=== PATIENT | female | born 1965 | race Caucasian/White ===

== ENCOUNTER → 2017-10-15 | Outpatient (CLI) | payer OTHER | END | disposition home or self-care (01) | LOC: LAB.O 13:42 | PROVIDERS: ATTEND Nurse Practitioner Family | DX: I10 Essential (primary) hypertension (principal) ==

== ENCOUNTER 2017-12-19 17:30 | Emergency (ER) | payer SELFPAY ==
[2017-12-19] MEDS: diazePAM 2 MG TAB PO ONE (18:04)
[2017-12-19] MEDS: cloNIDine HCL 0.1 MG TAB PO ONE (18:04)
--- NOTE | 2017-12-19 18:21 | RAD ---
EXAM DESCRIPTION: Chest,2 Views CLINICAL HISTORY:52 years Female, left shoulder pain for 3 days, htn Comparison: None FINDINGS: No focal lung consolidation. No pleural effusion. No pneumothorax. Prominent cardiac silhouette. No acute osseous abnormality. Soft tissues are unremarkable. IMPRESSION: No focal lung consolidation. Prominent cardiac silhouette. Electronically signed by: Robe Franco MD 12/19/2017 6:19 PM CDT
[2017-12-19] MEDS ORDERED: ALUM & MAG HYDROX-SIMETHICONE 30 ML UD ONE (18:55)
[2017-12-19] MEDS ORDERED: LIDOCAINE HCL 2% (MOUTH-THROAT) 15 ML UD ONE (18:55)
[2017-12-19] MEDS: NITROGLYCERIN 0.4 MG 25 EA TAB SL ONE (18:58)
[2017-12-19] MEDS: ALUM & MAG HYDROX-SIMETHICONE 30 ML, LIDOCAINE VISCOUS 2% 15 ML PO ONE ×2 (18:58)
[2017-12-19] MEDS ORDERED: NITROGLYCERIN/D5W IV 250 ML IVS ONE (19:25)
[2017-12-19] MEDS: NITROGLYCERIN/D5W IV 50,000 MCG in PREMIX BOTTLE 1 BOTTLE IVS SCH (19:33)
[2017-12-19] MEDS: ASPIRIN TABLET 325 MG TAB PO ONE (19:33)
--- NOTE | 2017-12-19 19:41 | ED.PDOC ---
History of Present Illness - General Chief Complaint: General Stated Complaint: Left neck,clavicle,upper arm discomfort Time Seen by Provider: 12/19/17 17:47 Source: patient Exam Limitations: no limitations - History of Present Illness Initial Comments: the patient is a 52-year-old female presenting to the emergency room after 2 weeks of progressive pain in her left shoulder with some pain to the upper back as well. It is a little worse with movement. No worse with taking a deep breath. The patient does have some known hypertension. She was also diagnosed with some renal insufficiency a couple of months ago with a creatinine of 2.2 at that time. At that time it was apparently felt that this was due to the diuretics and the diuretic was discontinued and she was continued on her lisinopril. The patient has no coronary history. She has no history of any pulmonary emboli or deep venous thrombosis or any aortic pathology. Her only medications that she takes at home are lisinopril and a baby aspirin she has not passed out. She does not feel short of breath. She has no actual chest pain.she rates the pain in her shoulder upon arrival as a 10 out of 10 Timing/Duration: unsure Severity: severe Improving Factors: nothing Worsening Factors: movement Associated Symptoms: denies symptoms Allergies/Adverse Reactions: Allergies Codeine Allergy (Verified 12/19/17 17:44) Vomitting Home Medications: Ambulatory Orders Aspirin [[facility] Low Dose Aspiri] 81 mg PO BEDTIME 12/19/17 Lisinopril 20 mg PO DAILY 12/19/17 Review of Systems - Review of Systems Constitutional: States: no symptoms reported EENTM: States: no symptoms reported Respiratory: States: no symptoms reported Cardiology: States: no symptoms reported Gastrointestinal/Abdominal: States: no symptoms reported Genitourinary: States: no symptoms reported Musculoskeletal: States: see HPI Skin: States: no symptoms reported Neurological: States: no symptoms reported Endocrine: States: no symptoms reported All other Systems: No Change from Baseline Past Medical History (General) - Patient Medical History Hx Stroke: No Hx Congestive Heart Failure: No Hx Hypertension: Yes Hx Diabetes: No Hx MRSA: No Surgical History: no surgical history - Vaccination History Hx Influenza Vaccination: No Hx Pneumococcal Vaccination: No - Social History Hx Tobacco Use: No - Female History Patient is a Female of Child Bearing Age (10 -59 yrs old): No Patient : No Family Medical History - Family History Mother Living Status: Still Living Hx Family Hypertension: Yes Physical Exam - Physical Exam General Appearance: Alert, Anxious Eye Exam: bilateral normal Ears, Nose, Throat: hearing grossly normal, normal ENT inspection, normal pharynx Neck: full range of motion, supple Respiratory: lungs clear, normal breath sounds, no respiratory distress, no accessory muscle use Cardiovascular/Chest: normal peripheral pulses, regular rate, rhythm, no edema Peripheral Pulses: radial,right: 2+, radial,left: 2+, dorsalis pedis,right: 2+, dorsalis pedis,left: 2+ Gastrointestinal/Abdominal: non tender, soft Rectal Exam: deferred Back Exam: normal inspection, no CVA tenderness, no vertebral tenderness Extremity: normal range of motion, non-tender, normal inspection, no pedal edema , no calf tenderness, normal capillary refill, other - the patient actually has no pain to palpation around her left shoulder. it does not actually seem to be made worse with movement. 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, no motor/sensory deficits, alert, oriented x 3 Skin Exam: normal color Comments: Vital Signs - 24 hr 12/19/17 12/19/17 12/19/17 17:38 17:55 18:30 Temperature 98.7 F Pulse Rate [ 105 H 74 72 Left Radial] Respiratory 20 20 20 Rate Blood Pressure 208/126 [Left Arm] Blood Pressure 205/124 157/104 182/103 [Right Arm] O2 Sat by Pulse 98 94 L 95 Oximetry 12/19/17 12/19/17 12/19/17 19:02 19:07 19:33 Temperature Pulse Rate [ 94 H 76 81 Left Radial] Respiratory 20 20 20 Rate Blood Pressure 162/104 [Left Arm] Blood Pressure 144/95 143/84 [Right Arm] O2 Sat by Pulse 92 L 92 L 90 L Oximetry Progress - Progress Progress: 12/19/17 19:44 the patient is a 52-year-old female presenting with left shoulder pain and severely uncontrolled hypertension. The patient has acute on chronic renal failure and does have a markedly elevated BNP and d-dimer. Cardiac enzymes are negative. The patient's pain has dramatically improved with control of her blood pressure. She is on a nitroglycerin drip. We are targeting a systolic blood pressure around 120. The patient refuses opiates. We do have her on 2 L of oxygen nasal cannula. She has not been hypoxic, her oxygen saturations have been between 90-96% on room air. I'm uncertain if this is helping her symptomatically. At this point in time this does appear to be a hypertensive emergency. I'm uncertain whether she is having demand ischemia and angina related to that or whether she has an undiagnosed pulmonary embolus or aortic pathology causing the pain and elevated d-dimer. to that end, she has received an aspirin but no Lovenox or heparin or Plavix at this time. Renal failure is preventing additional contrast imaging here in fear of overloading her kidneys if she needs a catheterization upon transfer. Certainly with her history of hypertension, arterial imaging of the renal arteries may be beneficial if it can be done while looking at the arteries in her chest. She is currently rating her pain at a 2. Transferred for higher level of care. Diagnosis hypertensive emergency. She likely does also have some congestive heart failure as indicated by the elevated BNP. She also has an abnormal d-dimer, for which a source has not yet been attributed. she also does of course have acute on chronic renal failure. Critical care time spent in management of this patient as well as planning for care transfer, excluding otherwise billable procedures is 40 minutes. - Results/Orders Results/Orders: hest x-ray shows mild cardiac prominence but no overt fluid overload. No significant widening of the mediastinum otherwise. Initial EKG shows poor progression in anterior leads, inverted T waves in leads V5 and V6 and aVL as well as lead 1. No acute ST segment changes that are obvious. It is a normal sinus rhythm. Normal QT interval. Repeat EKG after blood pressures are better controlled are consistent with the original however the T-wave inversions are more prominent in their appearance. Still no ST segment changes that I can see. Laboratory Tests 12/19/17 12/19/17 12/19/17 18:11 18:11 18:11 WBC 7.6 RBC 3.55 L Hgb 10.9 L Hct 32.0 L MCV 90.2 MCH 30.7 MCHC 34.0 RDW 13.3 Plt Count 400 MPV 7.8 Absolute Neuts (auto) 5.70 Absolute Lymphs (auto) 1.10 Absolute Monos (auto) 0.50 Absolute Eos (auto) 0.20 Absolute Basos (auto) 0.10 Neutrophils % 74.5 Lymphocytes % 14.8 L Monocytes % 7.0 Eosinophils % 2.6 Basophils % 1.1 PT 10.9 INR 0.940 PTT (SP) 24.4 L Sodium 141 Potassium 4.5 Chloride 112 H Carbon Dioxide 22 Anion Gap 11.5 L BUN 26 H Creatinine 2.82 H BUN/Creatinine Ratio 9.2 L Random Glucose 87 Serum Osmolality 285.4 Calcium 8.9 Magnesium 1.8 Total Bilirubin 0.4 AST 19 ALT 19 Alkaline Phosphatase 42 Creatine Kinase 221 H* CK-MB (CK-2) 2.8 CK-MB (CK-2) % 1.27 Troponin I 0.05 B-Natriuretic Peptide 1440.0 H* Serum Total Protein 6.3 L Albumin 3.5 Globulin 2.8 Albumin/Globulin Ratio 1.3 TSH 1.56 Departure - Departure Clinical Impression: Hypertensive emergency, D-dimer, elevated Congestive heart failure Qualifiers: Congestive heart failure type: unspecified congestive heart failure type Congestive heart failure chronicity: acute Qualified Code(s): I50.9 - Heart failure, unspecified Acute on chronic renal failure Qualifiers: Acute renal failure type: unspecified Chronic kidney disease stage: stage 3 ( moderate) Qualified Code(s): N17.9 - Acute kidney failure, unspecified; N18.3 - Chronic kidney disease, stage 3 (moderate) Disposition: Transfer to Hospital Referrals: Paxton Cedeño MD [Primary Care Provider] - 1-2 Weeks Home Medications: Ambulatory Orders Aspirin [[facility] Low Dose Aspiri] 81 mg PO BEDTIME 12/19/17 Lisinopril 20 mg PO DAILY 12/19/17 Transfer to Outside Facility - Transfer Information Accepting Provider:: dr cool Accepting Facility: [facility] [place] Reason for Transfer: required specialist not available
[2017-12-19 20:00] VITALS: TEMP 98.3; O2SAT 99
[2017-12-19] MEDS ORDERED: METOPROLOL TARTRATE INJ 5 MG/5 ML VIAL IV ONE (20:08)
[2017-12-19] MEDS: METOPROLOL TARTRATE INJ 5 MG/5 ML VIAL IV ONE (20:10)
[2017-12-19 20:24] VITALS: BP 162/104
== END 2017-12-19 20:24 | disposition short-term general hospital (02) ==
LOC: ER 17:30
DX: I16.0 Hypertensive urgency (principal); I13.0 Hypertensive heart and chronic kidney disease with heart failure and stage 1 through stage 4 chronic kidney disease, or unspecified chronic kidney disease; N18.3 Chronic kidney disease, stage 3 (moderate); I50.9 Heart failure, unspecified; Z79.82 Long term (current) use of aspirin

== ENCOUNTER → 2018-01-14 | Outpatient (CLI) | payer OTHER | LOC: YCFC.O 12:28 | PROVIDERS: ATTEND Nurse Practitioner Family | DX: I10 Essential (primary) hypertension (principal) ==

== ENCOUNTER → 2018-03-29 | Outpatient (CLI) | payer OTHER | LOC: LAB.O 13:23 | PROVIDERS: ATTEND Internal Medicine Nephrology | DX: N18.4 Chronic kidney disease, stage 4 (severe) (principal); E78.5 Hyperlipidemia, unspecified ==

== ENCOUNTER → 2018-05-07 | Outpatient (CLI) | payer OTHER | LOC: LAB.O 11:25 | PROVIDERS: ATTEND Internal Medicine Nephrology | DX: N18.4 Chronic kidney disease, stage 4 (severe) (principal); D63.1 Anemia in chronic kidney disease ==

== ENCOUNTER → 2018-05-21 | Outpatient (CLI) | payer OTHER | LOC: LAB.O 14:33 | PROVIDERS: ATTEND Internal Medicine Nephrology | DX: N18.4 Chronic kidney disease, stage 4 (severe) (principal) ==

== ENCOUNTER → 2019-06-16 | Outpatient (CLI) | payer BC, OTHER | LOC: LAB.O 16:00 | PROVIDERS: ATTEND Internal Medicine Nephrology | DX: N18.5 Chronic kidney disease, stage 5 (principal) ==

== ENCOUNTER → 2019-12-09 | Outpatient (CLI) | payer BC ==
--- NOTE | 2019-12-10 17:36 | MAM ---
EXAM DESCRIPTION: 3D Screening BILATERAL : Digital Mammography. CLINICAL HISTORY: 54 years Female ANNUAL SCREENING . No complaints. No personal history of breast cancer. Remote family history of breast and ovarian cancer. Menarche age 15. Childbirth age 23. Menopause age 51. No HRT. Lifetime risk of developing breast cancer (Tyrer-Cuzick model)(%): 7.0. COMPARISON: Baseline study at this facility.. No prior reports available. TECHNIQUE: Bilateral CC and MLO projection full-field images, digital tomosynthesis mammographic technique. Bilateral digital 2-D full-field MLO images. CAD available for 2-D images. FINDINGS: The breast parenchymal density pattern is: Heterogeneously dense breast tissue, which may obscure small masses. No skin thickening or nipple retraction. Left axillary lymph node. Solitary microcalcifications. No new focal, stellate mass or density, focal asymmetry , and no suspicious microcalcifications bilaterally. IMPRESSION: Benign exam. BIRAD CATEGORY: 2 BENIGN FINDINGS. RECOMMENDATIONS: FOLLOW UP: Routine digital bilateral mammographic screening, one year interval from December 2019. Written communication explaining the IMPRESSION and follow-up, will be mailed to the patient and referring health care provider. According to the [employer], yearly mammograms are recommended starting at age 40 and continuing as long as a woman is in good health. Any breast change noted on a breast self-exam should be reported promptly to the patient's healthcare provider. Breast MRI is recommended for women with an approximately 20-25% or greater lifetime risk of breast cancer, including women with a strong family history of breast or ovarian cancer and women who have been treated for Hodgkin's disease. A negative mammographic report should not delay tissue diagnosis in patients with significant clinical history or physical findings. Extremely dense breast tissue limits the sensitivity of digital mammography. Electronically signed by: Saeed Claudio MD 12/10/2019 5:35 PM CDT
== END ==
LOC: MAMMO 13:59
PROVIDERS: ATTEND Internal Medicine Nephrology
DX: Z12.31 Encounter for screening mammogram for malignant neoplasm of breast (principal)

== ENCOUNTER → 2020-08-27 | Outpatient (CLI) | payer BC ==
--- NOTE | 2020-08-27 14:04 | US ---
EXAM DESCRIPTION: Venous,Lower Extremity LT: ULTRASOUND. CLINICAL HISTORY: phlebitis and thrombophlebitis COMPARISON: None Available. TECHNIQUE: Soriano-scale and doppler sonographic evaluation of the deep venous system of the left lower extremity. FINDINGS: Doppler evaluation shows normal color flow and normal phasicity and augmentation of the left common femoral vein, left femoral vein, popliteal vein, left greater saphenous vein, junction with the CFV. Also normal color flow and normal phasicity and augmentation of the left peroneal, and posterior tibial vein. The left lower extremity deep veins were completely compressible; normal occlusion with transducer pressure. Soriano-scale survey showed no echogenic thrombus within these veins. Thrombus is noted in the mid left greater saphenous subcutaneous vein extending into the lesser saphenous subcutaneous vein down to the ankle. IMPRESSION: 1. Duplex ultrasound evaluation of the left lower extremity deep venous system showing no evidence of thrombosis. 2. Thrombosis in the mid left greater saphenous subcutaneous vein extending down to the ankle. No thrombosis in the left greater saphenous subcutaneous vein junction with the left common femoral vein. CRITICAL COMMUNICATION: The critical value was communicated directly by Dr. Claudio via phone call, with Dr. Cedeño, at approximately 1243 hours, on August 27, 2020. Electronically signed by: Saeed Claudio MD 08/27/2020 2:02 PM [employer]AREHOUSE [employer]SEM[employer] WORK[employer]
== END ==
LOC: YCFC.O 11:29
PROVIDERS: ATTEND Internal Medicine
DX: Z94.0 Kidney transplant status (principal); B25.9 Cytomegaloviral disease, unspecified; I82.812 Embolism and thrombosis of superficial veins of left lower extremity; Z87.19 Personal history of other diseases of the digestive system